=== PATIENT | female | born 1950 | race Caucasian/White ===

== ENCOUNTER 2017-03-26 08:20 | Emergency (ER) | payer OTHER ==
[~2017-03-26] VITALS: Ht 154.9 cm; Wt 81.0 kg
[2017-03-26] MEDS ORDERED: ONDANSETRON 4 MG INJ IV STA (08:27)
[2017-03-26] MEDS ORDERED: morphine 4 MG/ML VIAL IV STA (08:27)
[2017-03-26] MEDS ORDERED: NITROGLYCERIN 2% 1 GM OINT PKT TD STA (08:27)
[2017-03-26 08:40] VITALS: Ht 154.9 cm; Wt 81.0 kg
[2017-03-26 08:46] LABS: AADO2 Arterial 98.7 mmHg (7.0-24.0); Allen Test ACCEPTAB; Arterial Base Excess -2.2 mmol/L (-3.0-3); Arterial COHb 0 % (0.0-3.0); Arterial Fraction of Oxyhgb 95.7 % (93.0-99.0); Arterial HCO3 23.4 mmol/L (22.0-26.0); Arterial MetHb 0.2 % (0.0-1.5); Arterial Total Hemglobin 10.9 g/dl (12.0-18.0); MODE NASAL CANNULA
[2017-03-26] MEDS: NITROGLYCERIN (SL) 0.4 MG TAB SL PRN ×3 (08:46→09:06)
[2017-03-26] MEDS ORDERED: LEVALBUTEROL (NEB) 1.25 MG/0.5 ML AMP HHN ONE (09:00)
[2017-03-26] MEDS ORDERED: IPRATROPIUM (NEB) 0.5 MG/2.5 ML AMP HHN ONE (09:00)
[2017-03-26 09:23] LABS: BASOPHIL # 0.1 10^3/ul (0.0-0.1); BASOPHILS % 0.7 % (0.0-2.0); EOSINOPHILS # 0.5 10^3/ul (0.0-0.5); EOSINOPHILS % 4.6 % (0.0-7.0); HEMATOCRIT 30.3 % (37.0-47.0); HEMOGLOBIN 9.7 g/dl (12.0-16.0); LYMPHOCYTES # 1.8 10^3/ul (0.8-2.9); LYMPHOCYTES % 18.5 % (15.0-51.0); MEAN CORPUSCULAR HEMOGLOBIN 30.9 pg (29.0-33.0); MEAN CORPUSCULAR VOLUME 96.5 fl (82.0-101.0); MEAN PLATELET VOLUME 9.9 fl (7.4-10.4); MONOCYTE # 0.5 10^3/ul (0.3-0.9); NEUTROPHILS % 70.8 % (39.0-77.0); PLATELET COUNT 269 10^3/UL (140-415); RED BLOOD COUNT 3.14 10^6/ul (4.20-5.40); RED CELL DISTRIBUTION WIDTH 15.2 % (11.5-14.5); WHITE BLOOD COUNT 9.8 10^3/ul (4.8-10.8)
[2017-03-26 09:36] LABS: CALCIUM 9.7 mg/dl (8.4-10.2); CREATININE 9.23 mg/dl (0.44-1.00); POTASSIUM 5.6 mmol/L (3.5-5.1)
[2017-03-26 09:56] LABS: TROPONIN-I 0.245 ng/ml (0.00-0.12)
[2017-03-26] MEDS ORDERED: HEPARIN 1000 UNITS/ML 10 ML INJ IV STA (10:28)
[2017-03-26] MEDS ORDERED: HEPARIN 25000 UNITS/250 ML 250 ML IV STA (10:28)
[2017-03-26] MEDS ORDERED: AMLO5TAB4 PO (10:30)
[2017-03-26] MEDS ORDERED: HYDR-3672 PO (10:30)
[2017-03-26] MEDS ORDERED: ASPI-664 PO (10:30)
[2017-03-26] MEDS ORDERED: ATEN-51 PO (10:31)
[2017-03-26] MEDS ORDERED: FURO40TA4 PO (10:31)
[2017-03-26] MEDS ORDERED: ATOR10TA65 PO (10:31)
[2017-03-26] MEDS ORDERED: CLOP75TA27 PO (10:31)
[2017-03-26] MEDS ORDERED: ALLO100T PO (10:32)
[2017-03-26] MEDS ORDERED: PANT20TA2 PO (10:32)
[2017-03-26] MEDS ORDERED: ISOS60TA PO (10:33)
[2017-03-26] MEDS ORDERED: SEVE800T7 PO (10:34)
[2017-03-26] MEDS ORDERED: LANT3I SC (10:36)
[2017-03-26] MEDS ORDERED: INSU200I SQ (10:36)
[2017-03-26] MEDS ORDERED: VIT1TABL46 PO (10:37)
[2017-03-26] MEDS ORDERED: MAGN400T27 PO (10:38)
[2017-03-26 10:43] LABS: INR 0.93; PARTIAL THROMBOPLASTIN TIME 29.3 Sec (25.0-35.0); PROTIME 12.5 Sec (11.9-14.9)
--- NOTE | 2017-03-26 10:59 | RADRPT ---
PROCEDURE: XR Chest. CLINICAL INDICATION: Chest pain. TECHNIQUE: XR CHEST AP PORTABLE COMPARISON: None available. FINDINGS: There are moderate diffuse interstitial opacities bilaterally, especially in the lower lobes. No foc al consolidation is seen. No pneumothorax or pleural effusion is seen. The heart size is enlarged. Otherwise, the cardiomediastinal silhouette is unremarkable. The osseous structures are grossly u nremarkable. IMPRESSION: Cardiomegaly with diffusely prominent interstitial opacities, likely representing edema. Atypical i nfection or chronic interstitial lung change are also options. RPTAT: JJ .Jett Deal MD, Date Time Electronically viewed and signed by .Jett Deal MD, on 03/26/2017 10:59 .A/
[2017-03-26] MEDS ORDERED: HYDROmorphONE 1 MG/ML SYG IV STA (11:40)
[2017-03-26 12:24] VITALS: BP 128/98; PULSE 80; RESP 25; TEMP 97.8
--- NOTE | 2017-03-26 12:42 | ERD ---
ER Documentation Chief Complaint Chief Complaint biba for substernal cp that started today. +sob, nausea. HPI Patient is a 66-year-old female with dialysis, diabetes, high blood pressure, and coronary disease who presents with chest pain and shortness of breath. The patient was brought in by ambulance. The patient elevated carbon monoxide level per paramedics of 15. The patient was due for dialysis today but cannot get there. The patient started with reflux symptoms yesterday which progressed to midsternal chest pain which is pressure-like today. The pain is off and on. The patient had a recent cardiac stent placed on March 06. The patient was given aspirin nitroglycerin by paramedics. The patient has no fevers. The patient did take 1 nitroglycerin her self at home. Upon review of old medical records this is the patient's first visit to the ER. Her primary doctor is at [facility]. ROS All systems reviewed and are negative except as per history of present illness. Medications Home Meds Reported Medications Magnesium Oxide* (Mag-Oxide*) 400 Mg Tablet, 300 MG PO DAILY, TAB 03/26/17 Vitamin B Complex* (Vitamin B Complex*) 1 Each Tablet, 1 TAB PO DAILY, TAB 03/26/17 Insulin Lispro (Humalog Kwikpen) 200 Unit/1 Ml Insuln.pen, 12 UNIT SQ AC MEALS, EA 03/26/17 Insulin Glargine* (Lantus*) 100 Unit/Ml Soln, 54 UNIT SC QHS, #1 VIAL 03/26/17 Sevelamer Carbonate* (Renvela*) 800 Mg Tablet, 4 GM PO WITH MEALS, TAB 03/26/17 Isosorbide Mononitrate* (Isosorbide Mononitrate*) 60 Mg Tab.er.24h, 60 MG PO DAILY, TAB 03/26/17 Pantoprazole* (Protonix*) 20 Mg Tablet.dr, 20 MG PO BID, TAB 03/26/17 Allopurinol* (Allopurinol*) 100 Mg Tablet, 100 MG PO DAILY, TAB 03/26/17 Furosemide* (Furosemide*) 40 Mg Tablet, 40 MG PO DAILY, TAB 03/26/17 Atorvastatin Calcium (Atorvastatin Calcium) 10 Mg Tablet, 10 MG PO QHS, #30 TAB 03/26/17 Atenolol* (Atenolol*) 25 Mg Tablet, 25 MG PO DAILY, #30 TAB 12/18/17 Clopidogrel Bisulfate (Clopidogrel) 75 Mg Tablet, 75 MG PO DAILY, #30 TAB 03/26/17 Aspirin (Low Dose Aspirin) 81 Mg Tablet.dr, 81 MG PO DAILY, #30 TAB 03/26/17 Hydralazine Hcl* (Hydralazine Hcl*) 50 Mg Tab, 50 MG PO BID, #120 TAB 03/26/17 Amlodipine Besylate* (Norvasc*) 5 Mg Tablet, 5 MG PO DAILY, TAB 03/26/17 Allergies Allergies: Coded Allergies: Arzweok-Yov-Cyq Reductase Inhibitor (Verified Allergy, Unknown, muscle ache, 03/26/17) Sulfa (Sulfonamide Antibiotics) (Verified Adverse Reaction, Unknown, contraindication with medication, 03/26/17) PMhx/Soc History of Surgery: Yes (angiogram, AV fistula, D&C, tubal ligation, cholecystectomy) Anesthesia Reaction: No Hx Neurological Disorder: No Hx Respiratory Disorders: Yes (asthma) Hx Cardiac Disorders: Yes (htn, high cholesterol, CAD) Hx Psychiatric Problems: No Hx Miscellaneous Medical Probl: Yes (DM, chronic kidney failure) Hx Alcohol Use: No Hx Substance Use: No Hx Tobacco Use: No Smoking Status: Never smoker FmHx Family History: coronary disease Physical Exam Vitals Vital Signs Date Time Temp Pulse Resp B/P Pulse Ox O2 Delivery O2 Flow Rate FiO2 03/26/17 12:24 97.8 80 25 128/98 100 Nasal Cannula 2.0 03/26/17 09:37 95 27 205/85 100 Nasal Cannula 2.0 03/26/17 09:23 Nasal Cannula 2 03/26/17 08:48 106 30 94 21 03/26/17 08:40 98.0 143 28 183/102 95 Physical Exam Const: Moderate distress secondary to chest pain and shortness of breath Head: Atraumatic Eyes: Normal Conjunctiva ENT: Normal External Ears, Nose and Mouth. Neck: Full range of motion..~ No meningismus. Resp: Clear to auscultation bilaterally Cardio: Regular rate and rhythm, no murmurs Abd: Soft, non tender, non distended. Normal bowel sounds Skin: No petechiae or rashes Back: No midline or flank tenderness Ext: No cyanosis, or edema Neur: Awake and alert Psych: Normal Mood and Affect Result Diagram: 03/26/1790403/26/17904 Results 24 hrs Laboratory Tests Test 03/26/17 08:28 03/26/17 09:05 03/26/17 09:25 03/26/17 12:30 Blood Gas Specimen Source Blood arterial Arterial Blood Date Drawn 03/26/2017 8:35:33 AM Arterial Blood pH (Temp corrected) 7.348 Arterial Blood pCO2 (Temp correct) 43.6mmhg Arterial Blood pO2 (Temp corrected) 85.7mmHG Arterial Blood HCO3 23.4mmol/L Arterial Blood Base Excess -2.2mmol/L Arterial Blood Oxygen Saturation 95.9mmHG [place] Test ACCEPTAB Arterial Blood Gas Puncture Site Right Radial Arterial Blood Carboxyhemoglobin 0% Arterial Blood Methemoglobin 0.2% Blood Gas A-a O2 Differential 98.7mmHg Oxyhemoglobin Percent 95.7% Total Hemoglobin 10.9g/dl Blood Gas Temperature 37.0C Blood Gas Modality NASAL CANNULA FiO2 33.0% Blood Gas Notified Whom JLD Blood Gas Notified Time 03/26/2017 8:46:13 AM White Blood Count 9.810^3/ul Red Blood Count 3.1410^6/ul Hemoglobin 9.7g/dl Hematocrit 30.3% Mean Corpuscular Volume 96.5fl Mean Corpuscular Hemoglobin 30.9pg Mean Corpuscular Hemoglobin Concent 32.0g/dl Red Cell Distribution Width 15.2% Platelet Count 60958^3/UL Mean Platelet Volume 9.9fl Neutrophils % 70.8% Lymphocytes % 18.5% Monocytes % 5.0% Eosinophils % 4.6% Basophils % 0.7% Nucleated Red Blood Cells % 0.0/100WBC Neutrophils # 7.010^3/ul Lymphocytes # 1.810^3/ul Monocytes # 0.510^3/ul Eosinophils # 0.510^3/ul Basophils # 0.110^3/ul Nucleated Red Blood Cells # 0.010^3/ul Sodium Level 138mmol/L Potassium Level 5.6mmol/L Chloride Level 99mmol/L Carbon Dioxide Level 22mmol/L Anion Gap 23 Blood Urea Nitrogen 57mg/dl Creatinine 9.23mg/dl Glucose Level 345mg/dl Calcium Level 9.7mg/dl Troponin I 0.245ng/ml Prothrombin Time 12.5Sec Prothrombin Time Ratio 1.0 INR International Normalized Ratio 0.93 Activated Partial Thromboplast Time 29.3Sec Bedside Glucose 306mg/dL Current Medications Medications (Trade) Dose Ordered Sig/Skip Route PRN Reason Start Time Stop Time Status Last Admin Dose Admin Nitroglycerin (Nitroglycerin 2% Oint) 1 inch ONCE STAT TD 03/26/17 08:27 03/26/17 08:28 DC 03/26/17 08:45 Nitroglycerin (Nitroglycerin (Sl Tab) 0.4 Mg) 1 tab Q5M UP TO 3 DOSES PRN SL CHEST PAIN 03/26/17 08:30 03/26/17 09:06 Morphine Sulfate (morphine) 4 mg ONCE STAT IV 03/26/17 08:27 03/26/17 08:28 DC 03/26/17 09:32 Ondansetron HCl (Zofran Inj) 4 mg ONCE STAT IV 03/26/17 08:27 03/26/17 08:28 DC 03/26/17 09:32 Levalbuterol (Xopenex Neb) 1.25 mg ONCE ONCE N 03/26/17 09:00 03/26/17 09:01 DC 03/26/17 08:47 Ipratropium [place] (Atrovent 0.02% (Neb)) 0.5 mg ONCE ONCE N 03/26/17 09:00 03/26/17 09:01 DC 03/26/17 08:47 Heparin Sodium (Porcine) 5000 unit 5,000 unit ONCE STAT IV 03/26/17 10:28 03/26/17 10:31 DC 03/26/17 12:13 Heparin Sodium (Porcine) (Heparin 70925 Units/250 ml) 250 ml @ 0 mls/hr ONCE STAT IV 03/26/17 10:28 03/26/17 10:31 DC Hydromorphone HCl (Dilaudid) 1 mg ONCE STAT IV 03/26/17 11:40 03/26/17 11:41 DC 03/26/17 12:03 Procedures/MDM EKG #1 read by me: Rate/Rhythm: Sinus tachycardia at a rate of 103 Intervals: Normal Impression: Tachycardia without ischemia EKG #2 read by me: Rate/Rhythm: Sinus tachycardia rate of 102 Intervals: Normal Impression: Tachycardia without ischemia Chest x-ray shows pulmonary edema per radiology. Patient is a 66-year-old female with multiple cardiac risk factors who presents with chest pain shortness of breath. She has a positive troponin however this is in the setting of renal failure. She does need dialysis. The patient was given aspirin nitroglycerin as well as morphine and Dilaudid. She will be transferred as she has [facility] insurance and Dr. Aguila has accepted to [facility]. The patient will be transferred by ambulance to a telemetry bed. I doubt pneumonia, pneumothorax, pulmonary embolism, or aortic dissection. I am concerned for an NSTEMI. The patient was given heparin IV and then started on heparin drip. Critical Care: Time: 45 minutes excluding all billable procedures. Treatments/Evaluations: Close monitoring and treatment of unstable vital signs, cardiorespiratory, and neurologic status, while maintaining tight balance of fluid, respiratory, and cardiac interventions. Departure Diagnosis: Primary Impression: NSTEMI (non-ST elevated myocardial infarction) Additional Impressions: SOB (shortness of breath) Chest pain Chest pain type: unspecified Qualified Code: R07.9 - Chest pain, unspecified type Condition: Serious GRIS SANDERS MD Mar 26, 2017 12:42
== END 2017-03-26 18:41 | disposition short-term general hospital (02) ==
LOC: E/R 08:20
DX: I21.4 Non-ST elevation (NSTEMI) myocardial infarction (principal); I10 Essential (primary) hypertension; J45.909 Unspecified asthma, uncomplicated; I25.10 Atherosclerotic heart disease of native coronary artery without angina pectoris; E11.9 Type 2 diabetes mellitus without complications; Z79.4 Long term (current) use of insulin; Z79.01 Long term (current) use of anticoagulants; Z79.82 Long term (current) use of aspirin
CPT/HCPCS: 36415; 36600; 71010; 80048; 82803; 82962; 84484; 85025; 85610; 85730; 93005; 94664; 96374; 96375; 99291; J1170; J1644; J2270; J2405

== ENCOUNTER 2017-07-16 07:34 | Emergency (ER) | END 2017-07-16 11:55 | disposition short-term general hospital (02) ==

== ENCOUNTER 2017-10-08 03:34 | Inpatient (IN) | END 2017-10-10 18:43 | disposition short-term general hospital (02) | DRG 640 ==

== ENCOUNTER 2018-01-11 06:53 | Emergency (ER) | END 2018-01-11 11:15 | disposition short-term general hospital (02) ==